=== PATIENT | female | born 1985 | race Caucasian/White ===

== ENCOUNTER → 2019-12-01 11:36 | Outpatient (CLI) | payer OTHER, SELFPAY ==
--- NOTE | 2019-12-01 11:55 | RAD_ITS ---
STUDY: HISTORY OF SUPPURATIVE. REASON FOR EXAM: Female, 33 years old. INFERTILITY FLUOROSCOPY TIME (if supplied): ( 60 seconds ) minutes/seconds TECHNIQUE: A hysterosalpingogram was performed by the anesthesiology technologist. Imaging was performed. COMPARISON: None. FINDINGS: Contrast was injected. The uterus is unremarkable. The uterus is retroverted. There is visualization of both fallopian tubes. No spill is seen. RAD/Salpingogram IMPRESSION: Retroverted uterus. Both fallopian tubes are patent. No spill is seen at this time. Electronically Signed: Fermín Robertson, at 13:09 EDT , Service support ,
== END ==
PROVIDERS: Referring Provider Obstetrics & Gynecology; Visit Provider Obstetrics & Gynecology
DX: Z31.49 Encounter for other procreative investigation and testing (principal)
CPT/HCPCS: 58340; 74740; Q9967

== ENCOUNTER → 2020-02-23 07:57 | Outpatient (CLI) | payer OTHER, SELFPAY ==
--- NOTE | 2020-02-23 08:01 | RAD_ITS ---
STUDY: HYSTEROSALPINGOGRAM. REASON FOR EXAM: Female, 34 years old. INFERTILITY FLUOROSCOPY TIME (if supplied): ( 20 seconds ) minutes/seconds. 2 images were obtained. TECHNIQUE: A hysterosalpingogram was performed by the well surveying engineer. Imaging was obtained. COMPARISON: None. FINDINGS: The uterus is retroverted. It is unremarkable. Both fallopian tubes are visualized and patent with free spill. RAD/Salpingogram IMPRESSION: The fallopian tubes are patent with free spill. Electronically Signed: Fermín Robertson, at 9:18 EDT , Service support ,
== END ==
PROVIDERS: Referring Provider Obstetrics & Gynecology; Visit Provider Obstetrics & Gynecology
DX: Z31.49 Encounter for other procreative investigation and testing (principal)
CPT/HCPCS: 58340; 74740; Q9967